=== PATIENT | male | born 1995 | race Two or more races ===

== ENCOUNTER 2019-03-01 19:50 | Emergency (ER) | payer OTHER ==
--- NOTE | 2019-03-01 23:56 | ED ---
Lower Extremity - HPI Summary HPI Summary: 23 yo male presents with right leg injury. He tells me that this evening he was at the gym and hit his right anterior lower leg on a piece of gym equipment. Over the next few minutes it swelled. This concerned him because he had sclerotherapy here a few years ago for varicose veins. Mild pain to the area. At the time of this interview, he has been icing and elevating his leg and swelling/bruise has nearly resolved. He denies numbness or tingling. States immunizations are UTD - History of Current Complaint Chief Complaint: EDExtremityLower Stated Complaint: RIGHT LEGS INJURY PER PT Time Seen by Provider: 03/01/19 23:56 Hx Obtained From: Patient Severity Initially: Severe Severity Currently: Moderate Pain Intensity: 7 Pain Scale Used: 0-10 Numeric - Allergies/Home Medications Allergies/Adverse Reactions: Allergies Allergy/AdvReac Type Severity Reaction Status Date / Time No Known Allergies Allergy Verified 03/01/19 19:59 PMH/Surg Hx/FS Hx/Imm Hx Endocrine/Hematology History: Denies: Hx Diabetes Cardiovascular History: Denies: Hx Hypotension, Hx Hypertension Respiratory History: Denies: Hx Asthma, Hx Chronic Obstructive Pulmonary Disease (COPD) Neurological History: Denies: Hx Headaches - Surgical History Surgical History: None - Immunization History Immunizations Up to Date: Yes Infectious Disease History: No Infectious Disease History: Denies: Traveled Outside the [place] in Last 30 Days - Family History Known Family History: Positive: None - Social History Occupation: Student Lives: Dormitory/Roommates Alcohol Use: Occasionally Substance Use Type: Reports: None Smoking Status (MU): Never Smoked Tobacco Review of Systems Constitutional: Negative Cardiovascular: Negative Respiratory: Negative Musculoskeletal: Other - Right lower leg injury Skin: Negative Neurological: Negative Psychological: Normal All Other Systems Reviewed And Are Negative: No Physical Exam - Summary Physical Exam Summary: GENERAL: NAD. WDWN. No pain distress. SKIN: No rashes, sores, or open wounds. NECK: Supple. Nontender. No lymphadenopathy. CHEST: CTAB. No r/r/w. No accessory muscle use. Breathing comfortably and in no distress. CV: RRR. Pulses intact. Brisk cap refill. MSK: RIGHT LOWER LEG: Anterior aspect with 5mm linear superficial abrasion. Mild surrounding edema and tenderness. No ecchymosis. NEURO: Alert. PSYCH: Age appropriate behavior. Triage Information Reviewed: Yes Vital Signs On Initial Exam: Initial Vitals Temp Pulse Resp BP Pulse Ox 98.0 F 70 18 134/71 98 03/01/19 19:53 03/01/19 19:53 03/01/19 19:53 03/01/19 19:53 03/01/19 19:53 Vital Signs Reviewed: Yes Procedures - Sedation Patient Received Moderate/Deep Sedation with Procedure: No Diagnostics - Vital Signs Vital Signs Temp Pulse Resp BP Pulse Ox 03/01/19 23:45 98.1 F 62 18 111/54 98 03/01/19 19:53 98.0 F 70 18 134/71 98 - Laboratory Lab Statement: Any lab studies that have been ordered have been reviewed, and results considered in the medical decision making process. - Ultrasound Right leg Ultrasound Interpretation Completed By: Radiologist Summary of Ultrasound Findings: IMPRESSION: No DVT of the right lower extremity. Lower Extremity Course/Dx - Course Course Of Treatment: US negative. Discussed with pt. Suspect contusion and advised to rest, ice, and elevate. Return to ED with new or worsening symptoms. - Diagnoses Provider Diagnoses: Contusion, lower leg Discharge ED - Sign-Out/Discharge Documenting (check all that apply): Patient Departure - Discharge Plan Condition: Stable Disposition: HOME Patient Education Materials: Contusion in Adults (ED), Hematoma (ED) Referrals: No Primary Care Phys,NOPCP [Primary Care Provider] - Additional Instructions: If you develop a fever, shortness of breath, chest pain, new or worsening symptoms - please call your PCP or go to the ED immediately. Rest, Ice, and elevate your leg to decrease pain and swelling The ultrasound was normal today - Billing Disposition and Condition Condition: STABLE Disposition: Home - Attestation Statements Provider Attestation: the patient was seen by the midlevel provider, it was determined by them that it was not necessary for me to see the patient, I was available for consult during the patient's visit in the ED. I did not establish and patient-physician relationship. The chart however has been reviewed and I am signing in an administrative capacity.
[2019-03-02 00:19] VITALS: BP 108/55
== END 2019-03-02 00:20 | disposition home or self-care (01) ==
LOC: ED 19:50
DX: S80.11XA Contusion of right lower leg, initial encounter (principal); W22.09XA Striking against other stationary object, initial encounter; Y92.89 Other specified places as the place of occurrence of the external cause
CPT/HCPCS: 99282